=== PATIENT | female | born 1980 | race Caucasian/White ===

== ENCOUNTER 2024-05-19 16:07 | Emergency (ER) | payer OTHER, SELFPAY ==
[2024-05-19] VITALS (22 sets, daily range): BP systolic 121–143; BP diastolic 88–101; PULSE 87–153; TEMP 36.9; O2SAT 94–100; BMI 20.2
--- NOTE | 2024-05-19 16:25 | CT_ITS ---
The [address] [address] Patient Name: LYNN DOS SANTOS MRN: [id number] date: 1980 Sex: F Assigned Patient Location: ER Current Patient Location: ER Accession/Order Number: [id number] Exam Date: 05/19/2024 16:55 Report Date: 05/19/2024 17:51 At the request of: ANÍBAL FRANCO Procedure: CT head/brain wo con EXAM: CT head/brain wo con HISTORY: seizure COMPARISON: None. TECHNIQUE: Head CT noncontrast FINDINGS: A density normal without mass, edema or hemorrhage. Ventricles midline without mass effect or shift. No extra-axial collection or hematoma. No fracture or focal bony abnormality. Visualized mastoids, middle ear cavity sinuses without fluid level. CT/CT head/brain wo con IMPRESSION: Negative head CT without acute abnormality or hemorrhage. Electronically authenticated by: LYSSA ADAME Date: 05/19/2024 17:51
--- NOTE | 2024-05-19 16:25 | ECG_ITS ---
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
[2024-05-19] MEDS: 0.9 % SODIUM CHLORIDE 1,000 ML 1000 ML IV (16:41)
[2024-05-19 16:49] LABS: Basophils Percent Auto 0.2 % (0.2-2.0); Eosinophils Percent Auto 0.7 % (0.9-7.0); Hematocrit 36.4 % (36.0-48.0); Hemoglobin 12.1 g/dL (12.0-16.0); Immature Granulocytes Abs Auto 0.01 10^3/uL (0.00-0.03); Immature Granulocytes Pct Auto 0.2 % (0.0-0.5); Lymphocytes Absolute Auto 0.8 10^3/uL (1.2-3.8); Lymphocytes Percent Auto 12.6 % (20.5-60.0); Mean Corpuscular HGB Conc 33.2 g/dL (29.9-35.2); Mean Corpuscular Hemoglobin 33.8 pg (26.7-34.0); Mean Corpuscular Volume 101.7 fL (81.0-99.0); Mean Platelet Volume 9.4 fL (9.5-13.5); Monocytes Absolute Auto 0.5 10^3/uL (0.3-0.8); Monocytes Percent Auto 7.9 % (1.7-12.0); Neutrophils Absolute Auto 4.8 10^3/uL (1.4-6.5); Neutrophils Percent Auto 78.4 % (43.0-75.0); Platelet Count 117 10^3/uL (150-450); Red Blood Count 3.58 10^6/uL (4.20-5.40); White Blood Count 6.1 10^3/uL (4.0-11.0)
[2024-05-19 16:58] LABS: Ethanol 14 mg/dL
[2024-05-19 17:03] LABS: Alanine Aminotransferase 79 U/L (14-59); Albumin Level 3.6 g/dL (3.4-5.0); Alkaline Phosphatase 65 U/L (46-116); Anion Gap 15.5; Aspartate Amino Transferase 112 U/L (15-37); BUN Creatinine Ratio 7.8; Bilirubin Total 0.4 mg/dL (0.2-1.0); Calcium 8.7 mg/dL (8.5-10.1); Carbon Dioxide 22.3 mmol/L (21.0-32.0); Chloride 99 mmol/L (98-107); Estimated GFR (African America >60 (>=60); Estimated GFR (Non-African Ame >60 (>=60); Globulin 3.6 g/dL; Glucose 126 mg/dL (74-106); Potassium 3.8 mmol/L (3.5-5.1); Sodium 133 mmol/L (136-145); Total Protein 7.2 g/dL (6.4-8.2)
[2024-05-19 17:05] LABS: Magnesium 1.8 mg/dL (1.8-2.4); Prothrombin Time 9.8 sec (9.0-11.6); Troponin I High Sensitivity 7.3 pg/mL (4.0-51.3)
[2024-05-19 17:06] LABS: INR <0.93
[2024-05-19 17:09] LABS: HCG Qualitative NEGATIVE (NEGATIVE); Internal Control Within Normal Limits
[2024-05-19] MEDS: FAMOTIDINE/PF 20 MG/2 ML VIAL IV (17:35)
[2024-05-19] MEDS: ONDANSETRON PF 4 MG/2 ML VIAL IV (17:35)
--- NOTE | 2024-05-19 17:42 | ED.SEIZURE1 ---
HPI - Seizure General Chief Complaint: Seizure Stated Complaint: SEIZURE Time Seen by Provider: 05/19/24 16:25 Source: patient and EMR Mode of arrival: ambulance Limitations: no limitations History of Present Illness HPI Narrative: The patient is coming to the ER after she had a suspected seizure at her in-laws, by the time the EMS arrived the patient was postictal there was no body at the bedside to provide history, but the patient noted that when she woke up she was confused, at this moment she is denying any complain she did not have any incontinence of urine or stool did not bite her tongue Patient also had no similar problem before She was drinking alcohol before this happened Related Data Home Medications ?Medication ?Instructions ?Recorded ?Confirmed celecoxib 200 mg capsule mg 05/19/24 hydroxyzine HCl 25 mg tablet mg 05/19/24 sertraline 100 mg tablet mg 05/19/24 sertraline 50 mg tablet mg 05/19/24 tizanidine 4 mg tablet mg 05/19/24 Allergies Allergy/AdvReac Type Severity Reaction Status Date / Time amoxicillin Allergy Mild Hives Verified 05/19/24 16:16 Review of Systems ROS Status of ROS 10 or more systems reviewed and unremarkable except as noted in history and below Exam Narrative Exam Narrative: Nurses notes and vital signs reviewed and patient is not hypoxic. General: Well-appearing and in no apparent distress. Skin: Warm, dry, no pallor noted. No rash. Head: Normocephalic, atraumatic. Neck: Supple, non-tender. Eye: Pupils are equal, round and EOMI. No scleral icterus. Ears, Nose, Mouth, and Throat: TM are clear, no nasal mucosal hypertrophy. Oral mucosa is moist, no posterior oropharynx erythema, uvula is mid-line Cardiovascular: Regular Rate and Rhythm without murmur, gallop or rub. Respiratory: No accessory muscle use or respiratory distress. Lungs are clear to auscultation, no wheezing, rales or rhonchi Chest Wall: no tenderness Back: No midline thoracic or lumbar vertebral tenderness. No CVA tenderness Musculoskeletal: normal ROM, no calf or popliteal tenderness, no lower extremity edema/swelling GI: Abdomen is soft, non-distended. Normal bowel sounds. No masses appreciated. No tenderness to palpation. No rebound, guarding, or rigidity noted. Neurological: A&O x4. No cranial nerve dysfunction observed. No truncal ataxia. Moves all extremities. Sensation intact. Psychiatric: Cooperative and interactive. Normal mood and affect. Constitutional Vital Signs, click to edit/add: Last Vital Signs Temp 98.4 F 05/19/24 16:10 Pulse 102 H 05/19/24 18:29 Resp 24 H 05/19/24 18:29 BP 121/88 05/19/24 18:59 Pulse Ox 99 05/19/24 19:05 O2 Del Method Room Air 05/19/24 19:05 Course Vital Signs Vital signs: Vital Signs Temperature 98.4 F 05/19/24 16:10 Pulse Rate 92 H 05/19/24 16:10 Respiratory Rate 16 05/19/24 16:10 Blood Pressure 137/97 H 05/19/24 16:10 Pulse Oximetry 97 05/19/24 16:10 Oxygen Delivery Method Room Air 05/19/24 16:10 Temperature 98.4 F 05/19/24 16:10 Pulse Rate 102 H 05/19/24 18:29 Respiratory Rate 24 H 05/19/24 18:29 Blood Pressure 121/88 05/19/24 18:59 Pulse Oximetry 99 05/19/24 19:05 Oxygen Delivery Method Room Air 05/19/24 19:05 MDM - Seizure MDM Narrative Medical decision making narrative: The patient CT head showed no acute pathology CBC and chemistry as well as showed no acute significant pathology EKG was showing sinus rhythm with a heart rate of [address] elevation or depression The patient did mention that she was not drinking enough water during the day and she was outside most of the time and she was feeling dehydrated She also mentioned that she has not been sleeping well for the last few days and she is coming from [facility] Right now I did explain to her that she need to hydrate and make sure that she have a good sleep hygiene She is to follow-up with her primary care doctor to be referred to neurology as she mentioned sometimes having tremors in her upper and lower extremity although she is able to ambulate now with no difficulty and having no acute complaints The patient is to follow up with primary care physician in next 2-3 days or to return to the emergency department should any of the signs or symptoms worsen or new symptoms develop. The patient agrees with the following Diagnosis and Treatment plan and the patient will be discharged home. Lab Data Labs: Lab Results 05/19/24 Range/Units 16:42 WBC 6.1 (4.0-11.0) 10^3/uL RBC 3.58 L (4.20-5.40) 10^6/uL Hgb 12.1 (12.0-16.0) g/dL Hct 36.4 (36.0-48.0) % MCV 101.7 H (81.0-99.0) fL MCH 33.8 (26.7-34.0) pg MCHC 33.2 (29.9-35.2) g/dL RDW 12.0 (11.0-15.0) % Plt Count 117 L (150-450) 10^3/uL MPV 9.4 L (9.5-13.5) fL Neut % (Auto) 78.4 H (43.0-75.0) % Lymph % (Auto) 12.6 L (20.5-60.0) % Kings % (Auto) 7.9 (1.7-12.0) % Eos % (Auto) 0.7 L (0.9-7.0) % Baso % (Auto) 0.2 (0.2-2.0) % Neut # (Auto) 4.8 (1.4-6.5) 10^3/uL Lymph # (Auto) 0.8 L (1.2-3.8) 10^3/uL Kings # (Auto) 0.5 (0.3-0.8) 10^3/uL Eos # (Auto) 0.0 (0.0-0.7) 10^3/uL Baso # (Auto) 0.0 (0.0-0.1) 10^3/uL Abs Immat Gran (auto) 0.01 (0.00-0.03) 10^3/uL Imm/Tot Granulo (auto) 0.2 (0.0-0.5) % PT 9.8 (9.0-11.6) sec INR <0.93 Sodium 133 L (136-145) mmol/L Potassium 3.8 (3.5-5.1) mmol/L Chloride 99 (98-107) mmol/L Carbon Dioxide 22.3 (21.0-32.0) mmol/L Anion Gap 15.5 BUN 5.0 L (7.0-18.0) mg/dL Creatinine 0.64 (0.55-1.02) mg/dL Est GFR ( Amer) >60 (>=60) Est GFR (Non-Af Amer) >60 (>=60) BUN/Creatinine Ratio 7.8 Glucose 126 H (74-106) mg/dL Calcium 8.7 (8.5-10.1) mg/dL Magnesium 1.8 (1.8-2.4) mg/dL Total Bilirubin 0.4 (0.2-1.0) mg/dL AST 112 H (15-37) U/L ALT 79 H (14-59) U/L Alkaline Phosphatase 65 (46-116) U/L Troponin I High Sens 7.3 (4.0-51.3) pg/mL Total Protein 7.2 (6.4-8.2) g/dL Albumin 3.6 (3.4-5.0) g/dL Globulin 3.6 g/dL Albumin/Globulin Ratio 1.0 Serum HCG, Qual Negative (NEGATIVE) Ethanol Quant 14 mg/dL Discharge Plan Discharge Stand Alone Forms: Portal Instructions Chief Complaint: Seizure Clinical Impression: New onset seizure Patient Disposition: Home, Self-Care Time of Disposition Decision: 18:25 Condition: Good Prescriptions / Home Meds: No Action celecoxib 200 mg capsule tizanidine 4 mg tablet sertraline 100 mg tablet hydroxyzine HCl 25 mg tablet sertraline 50 mg tablet Print Language: Greek Instructions: New-Onset Seizure in Adults (ED) Referrals: Physician,Non-Staff, MD [Primary Care Provider] - 1 week Discharge Date/Time: 05/19/24 19:44
== END 2024-05-19 19:44 | disposition home or self-care (01) ==
PROVIDERS: Emergency Provider Emergency Medicine
DX: R56.9 Unspecified convulsions (principal)
CPT/HCPCS: 36415; 70450; 80053; 80307; 80320; 83735; 84484; 84703; 85025; 85610; 93005; 96374; 96375; 99285; J2405